=== PATIENT | female | born 1975 | race Caucasian/White ===

== ENCOUNTER 2018-04-08 13:46 | Emergency (ER) | payer MEDICARE, MEDICAID ==
[~2018-04-08 13:46] MED LIST: ALB0.5UD NEB; BACL10TA2 PO; DIVA500T9 PO; HALO5TAB PO; IBUP-1984 PO; LAMO25TA62 PO; NAPR-56 PO; ONDA4TAB9 SL; QUET-1 PO
== END 2018-04-08 13:56 | disposition left against medical advice (07) ==
LOC: ER 13:47
DX: Z00.00 Encounter for general adult medical examination without abnormal findings (principal); Z53.21 Procedure and treatment not carried out due to patient leaving prior to being seen by health care provider

== ENCOUNTER 2018-12-06 22:13 | Emergency (ER) | payer MEDICARE, MEDICAID ==
[~2018-12-06] VITALS: Ht 167.6 cm; Wt 80.0 kg
[2018-12-06 22:50] VITALS: BP 136/56
--- NOTE | 2018-12-06 22:51 | NUR ---
CARRIE PERSAUD SAW PT BEFORE TRIAGE. WHILE TRIAGING PT, SHE BECAME UPSET THAT SHE WOULD HAVE TO WAIT OUT IN THE LOBBY, PT WANTED A SPECIAL HALLWAY BED BUT WAS TOLD SHE COULD NOT GO TO THOSE DUE TO NO STAFFING. PT STATED SHE WAS LEAVING, UNABLE TO GET FULL SET OF VITAL SIGNS. MARIAH PERSAUD AWARE.
== END 2018-12-06 22:52 | disposition left against medical advice (07) ==
LOC: ER 22:14
DX: R10.84 Generalized abdominal pain (principal); R50.9 Fever, unspecified; E11.9 Type 2 diabetes mellitus without complications; G89.29 Other chronic pain; Z56.0 Unemployment, unspecified; Z88.2 Allergy status to sulfonamides; Z88.8 Allergy status to other drugs, medicaments and biological substances; Z79.899 Other long term (current) drug therapy
CPT/HCPCS: 99283